=== PATIENT | female | born 1980 | race African-American/Black ===

== ENCOUNTER 2020-12-29 13:55 | Outpatient (CLI) | payer BC ==
--- NOTE | 2020-12-29 15:50 | Mammography Report ---
RIGHT DIAGNOSTIC MAMMOGRAM INDICATION: Two right breast masses identified on outside imaging. COMPARISON: 11/10/2020. FINDINGS: Right breast CC and ML projection mammograms were obtained. These document biopsy markers i n the expected locations following biopsies in the right breast at the 3:00 position (U-shaped biopsy marker) and 5:00 position (hydromark biopsy marker). IMPRESSION: Right breast mammograms documenting accurate location of two biopsy markers status post biopsies in t he right breast at the 3:00 and 5:00 positions, as above. BI-RADS Category 4: Suspicious for Malignancy. Signer Name: Oswald Grace MD Signed: 12/29/2020 3:45 PM Workstation Name: [id number]
--- NOTE | 2020-12-29 16:34 | Ultrasound Report ---
ULTRASOUND-GUIDED CORE NEEDLE BIOPSY Right BREAST WITH CLIP PLACEMENT x2 INDICATION: Right breast masses x2 FINDINGS: Informed consent was obtained. The lesion within the right breast at the 3:00 position, 5 cm from the nipple, was identified with ultrasound. The overlying skin was cleansed with chloro prep and local a nesthesia was obtained with a 1% lidocaine solution. Under ultrasound guidance a 14-gauge spring load ed core biopsy needle was advanced to the lesion. A total of 5 core samples were obtained. A U-shaped biopsy marker was placed to tosha the site of the biopsy. The lesion within the right breast at the 5:00 position, 5 cm from the nipple, was identified with ul trasound. The overlying skin was cleansed with chloro prep and local anesthesia was obtained with a 1 % lidocaine solution. Under ultrasound guidance a 14-gauge spring loaded core biopsy needle was advan gail to the lesion. A total of 5 core samples were obtained. A hydromark biopsy marker was placed to m ark the site of the biopsy. Specimen samples were placed in formalin and sent to pathology for analysis. Patient tolerated the procedure well and no immediate complications were identified. A post procedure mammogram demonstrates accurate placement of the biopsy marker. IMPRESSION: Technically successful ultrasound guided core biopsy of right breast lesion at the 3:00 position with placement of a U-shaped biopsy marker. Technically successful ultrasound-guided core biopsy of right breast lesion at the 5:00 position with placement of a hydromark biopsy marker. An addendum will be added to this report once pathology results are available Signer Name: Oswald Grace MD Signed: 12/29/2020 4:29 PM Workstation Name: [id number]
== END 2020-12-29 13:56 | disposition home or self-care (01) ==
LOC: SPVWC 13:55
PROVIDERS: ATTEND Surgery
DX: N63.14 Unspecified lump in the right breast, lower inner quadrant (principal); D24.1 Benign neoplasm of right breast; R92.8 Other abnormal and inconclusive findings on diagnostic imaging of breast; N64.89 Other specified disorders of breast
CPT/HCPCS: 88305